=== PATIENT | female | born 1965 | race Hispanic/Latino ===

== ENCOUNTER 2019-04-24 08:46 | Emergency (ER) | payer OTHER ==
[~2019-04-24] VITALS: Ht 165.1 cm; Wt 90.0 kg
[2019-04-24] MEDS ORDERED: UNKNOWN BP MED (09:30)
[2019-04-24 10:55] VITALS: BP 139/74
== END 2019-04-24 10:55 | disposition home or self-care (01) ==
LOC: ED 08:46
DX: S86.911A Strain of unspecified muscle(s) and tendon(s) at lower leg level, right leg, initial encounter (principal); I10 Essential (primary) hypertension; X58.XXXA Exposure to other specified factors, initial encounter

== ENCOUNTER 2019-07-20 16:18 | Emergency (ER) | payer OTHER ==
[~2019-07-20] VITALS: Ht 165.1 cm; Wt 85.0 kg
[~2019-07-20 16:18] MED LIST: UNKNOWN BP MED
[2019-07-20] MEDS ORDERED: LISINOPRIL5 MG PO (16:48)
[2019-07-20] MEDS ORDERED: ELIQUIS2.5 MG (16:48)
[2019-07-20] MEDS ORDERED: MEDDOSEPAK PO (17:44)
[2019-07-20 17:47] VITALS: BP 159/71
== END 2019-07-20 17:50 | disposition home or self-care (01) ==
LOC: ED 16:18
DX: J06.9 Acute upper respiratory infection, unspecified (principal); I10 Essential (primary) hypertension; T46.5X6A Underdosing of other antihypertensive drugs, initial encounter; T45.516A Underdosing of anticoagulants, initial encounter; Z91.128 Patient's intentional underdosing of medication regimen for other reason

== ENCOUNTER 2019-12-14 | Emergency (ER) | payer OTHER ==
[~2019-12-14] MED LIST changes: +ELIQUIS2.5 MG; +LISINOPRIL5 MG PO; +MEDDOSEPAK PO
[2019-12-14] MEDS ORDERED: KEFLEX500 M1 PO (13:37)
== END 2019-12-14 13:55 | disposition home or self-care (01) ==
DX: S50.861A Insect bite (nonvenomous) of right forearm, initial encounter (principal); L08.9 Local infection of the skin and subcutaneous tissue, unspecified; I10 Essential (primary) hypertension; W57.XXXA Bitten or stung by nonvenomous insect and other nonvenomous arthropods, initial encounter